=== PATIENT | male | born 1965 | race Caucasian/White ===

== ENCOUNTER 2022-12-20 07:57 | Outpatient (CLI) | payer MEDICAID, SELFPAY | END 2022-12-20 07:58 | disposition home or self-care (01) | PROVIDERS: PCP Family Medicine; Visit Provider Family Medicine | DX: E78.2 Mixed hyperlipidemia (principal); I10 Essential (primary) hypertension; Z12.5 Encounter for screening for malignant neoplasm of prostate | CPT/HCPCS: 80048; 80061; 84153 ==

== ENCOUNTER 2024-01-31 09:36 | Outpatient (CLI) | payer OTHER, SELFPAY | END 2024-01-31 09:37 | disposition home or self-care (01) | PROVIDERS: PCP Family Medicine; Visit Provider Family Medicine | DX: E78.2 Mixed hyperlipidemia (principal); I10 Essential (primary) hypertension; Z12.5 Encounter for screening for malignant neoplasm of prostate | CPT/HCPCS: 80048; 80061; G0103 ==

== ENCOUNTER 2024-05-28 06:25 | Outpatient (CLI) | payer OTHER, SELFPAY ==
--- NOTE | 2024-05-28 07:56 | W.ANESCHARGE ---
Anesthesia Charges Start Date/Time Anesthesia Start Date: 05/28/24 Anesthesia Start Time: 07:21 Stop Date/Time Anesthesia Stop Date: 05/28/24 Anesthesia Stop Time: 07:52 Coding CPT Codes CPT Codes: DEJAN LWR INTST NDSC NOS - [id number] ([id number]) P2 - PATIENT W/MILD SYST DISEASE, QK - VETERINARIAN SMALL ANIMAL 2-4 CNCRNT ANES PROC, QX - VOIP NETWORK TECHNICIAN SVC W/ MD MED DIRECTION
--- NOTE | 2024-05-28 08:54 | W.ANESCHARGE ---
Anesthesia Charges Start Date/Time Anesthesia Start Date: 05/28/24 Anesthesia Start Time: 07:21 Stop Date/Time Anesthesia Stop Date: 05/28/24 Anesthesia Stop Time: 07:52 Coding CPT Codes CPT Codes: DEJAN LWR INTST NDSC NOS - [id number] ([id number]) P2 - PATIENT W/MILD SYST DISEASE, QK - RIVET STICKER 2-4 CNCRNT ANES PROC, QX - HARD CANDY SPINNER SVC W/ MD MED DIRECTION
== END 2024-05-28 06:26 | disposition home or self-care (01) ==
LOC: OP CLINIC 06:26
PROVIDERS: PCP Family Medicine; Visit Provider Surgery
DX: Z12.11 Encounter for screening for malignant neoplasm of colon (principal); D12.0 Benign neoplasm of cecum; K63.89 Other specified diseases of intestine; Z86.0100 Personal history of colon polyps, unspecified
CPT/HCPCS: 00811; 45380; 45385; 88305; J2704